=== PATIENT | female | born 1980 | race Caucasian/White ===

== ENCOUNTER 2021-01-28 05:39 | Emergency (ER) | payer BC, OTHER ==
[~2021-01-28] VITALS: Ht 152.4 cm; Wt 57.6 kg
[2021-01-28 06:12] LABS: URINE BLOOD TRACE (Negative); URINE GLUCOSE-RANDOM* 1+ (Negative); URINE KETONES TRACE (Negative); URINE PROTEIN (DIPSTICK) 3+ (Negative); URINE SPECIFIC GRAVITY 1.025 (1.005-1.035); URINE UROBILINOGEN >= 8.0 E.U./dl (0.2-1.0)
[2021-01-28 06:15] LABS: URINE CLARITY HAZY; URINE LEUKOCYTES-REFLEX 3+ (Negative); URINE NITRITE-REFLEX POSITIVE (Negative)
[2021-01-28 06:16] LABS: ICTOTEST (BILI CONFIRMATORY) Negative (Negative); URINE BILIRUBIN NEGATIVE (Negative)
[2021-01-28 06:17] LABS: URINE COLOR ORANGE
[2021-01-28] MEDS ORDERED: PYRIDIUM200 M2 PO (06:25)
[2021-01-28] MEDS ORDERED: CEPHALEXIN500 MG PO (06:25)
[2021-01-28 06:35] VITALS: BP 124/80
[2021-01-28 06:40] LABS: CASTS None Seen /LPF (None Seen); MUCUS >6 Heavy strn/LPF (None Seen); SQUAMOUS 0-3 Few /LPF (0-3)
[2021-01-28 06:41] LABS: BACTERIA-REFLEX >30 Many /HPF (None Seen); CRYSTALS None Seen /LPF (None Seen); URINE RBC 1-2 Rare /HPF (NONE SEEN); URINE WBC-REFLEX >25 Many /HPF (0-5); WBC CLUMPS Few (None Seen)
== END 2021-01-28 06:37 | disposition home or self-care (01) ==
LOC: ER 05:39
PROVIDERS: Emergency Medicine
DX: N39.0 Urinary tract infection, site not specified (principal); Z91.09 Other allergy status, other than to drugs and biological substances

== ENCOUNTER 2021-02-06 00:12 | Emergency (ER) | payer BC, OTHER ==
[~2021-02-06] VITALS: Ht 152.4 cm; Wt 56.2 kg
[~2021-02-06 00:12] MED LIST: CEPHALEXIN500 MG PO; PYRIDIUM200 M2 PO
[2021-02-06] MEDS ORDERED: PHENTERMINE H37.5 M1 PO (00:27)
[2021-02-06] MEDS ORDERED: VITAMIN D3125 MC1 PO (00:28)
[2021-02-06] MEDS ORDERED: TRULICITY3 MG/0.5 M SUBQ (00:28)
[2021-02-06 00:58] LABS: URINE BILIRUBIN NEGATIVE (Negative); URINE BLOOD TRACE (Negative); URINE CLARITY CLEAR; URINE COLOR YELLOW; URINE GLUCOSE-RANDOM* NEGATIVE (Negative); URINE KETONES NEGATIVE (Negative); URINE LEUKOCYTES-REFLEX NEGATIVE (Negative); URINE NITRITE-REFLEX NEGATIVE (Negative); URINE PROTEIN (DIPSTICK) NEGATIVE (Negative); URINE SPECIFIC GRAVITY >= 1.030 (1.005-1.035)
[2021-02-06] MEDS ORDERED: PYRIDIUM200 MG PO (01:07)
[2021-02-06 01:18] VITALS: BP 140/91
[2021-02-06 22:17] LABS: BACTERIA-REFLEX None Seen /HPF (None Seen); CASTS None Seen /LPF (None Seen); CRYSTALS None Seen /LPF (None Seen); MUCUS 0-3 Light strn/LPF (None Seen); SQUAMOUS None Seen /LPF (0-3); URINE WBC-REFLEX None Seen /HPF (0-5)
== END 2021-02-06 01:18 | disposition home or self-care (01) ==
LOC: ER 00:12
PROVIDERS: Emergency Medicine
DX: R30.0 Dysuria (principal); Z79.899 Other long term (current) drug therapy; Z79.891 Long term (current) use of opiate analgesic; Z91.09 Other allergy status, other than to drugs and biological substances

== ENCOUNTER 2021-03-20 14:09 | Emergency (ER) | payer BC, OTHER ==
[~2021-03-20] VITALS: Ht 152.4 cm; Wt 56.2 kg
[~2021-03-20 14:09] MED LIST changes: +PHENTERMINE H37.5 M1 PO; +PYRIDIUM200 MG PO; +TRULICITY3 MG/0.5 M SUBQ; +VITAMIN D3125 MC1 PO
[2021-03-20 14:10] VITALS: BP 127/92
[2021-03-20 14:29] LABS: URINE BILIRUBIN NEGATIVE (Negative); URINE BLOOD NEGATIVE (Negative); URINE CLARITY CLEAR; URINE COLOR YELLOW; URINE GLUCOSE-RANDOM* NEGATIVE (Negative); URINE KETONES TRACE (Negative); URINE LEUKOCYTES-REFLEX TRACE (Negative); URINE PROTEIN (DIPSTICK) 1+ (Negative); URINE SPECIFIC GRAVITY >= 1.030 (1.005-1.035)
[2021-03-20 14:32] LABS: URINE NITRITE-REFLEX POSITIVE (Negative)
[2021-03-20 14:41] LABS: CASTS None Seen /LPF (None Seen); CRYSTALS None Seen /LPF (None Seen); SQUAMOUS 0-3 Few /LPF (0-3); URINE RBC 1-2 Rare /HPF (NONE SEEN); URINE WBC-REFLEX 6-15 Few /HPF (0-5)
[2021-03-20 14:45] LABS: MCH 24.8 pg (26.0-34.0); MCHC 32.4 g/dL (28.0-37.0); MCV 76.7 fL (80.0-100.0); RBC 4.04 mil/uL (4.20-5.00); RDW 14.7 % (10.5-14.5); WBC 5.7 thou/uL (4.0-11.0)
[2021-03-20 14:53] LABS: CALCIUM 8.8 mg/dL (8.5-10.1); CREATININE 0.5 mg/dL (0.6-1.0); POTASSIUM 3.6 mmol/L (3.5-5.1)
[2021-03-20 14:59] LABS: ALBUMIN 3.3 g/dL (3.4-5.0); TOTAL BILIRUBIN 0.1 mg/dL (0.2-1.0)
[2021-03-20] MEDS ORDERED: TRAMADOL 50 MG50 MG PO (15:00)
[2021-03-20] MEDS ORDERED: CEPHALEXIN500 MG PO (15:00)
[2021-03-20] MEDS ORDERED: PHENAZOPYRIDIN200 M2 PO (15:00)
== END 2021-03-20 15:12 | disposition home or self-care (01) ==
LOC: ER 14:09
PROVIDERS: Physician Assistant
DX: N39.0 Urinary tract infection, site not specified (principal); Z98.51 Tubal ligation status; Z79.899 Other long term (current) drug therapy; Z88.8 Allergy status to other drugs, medicaments and biological substances